=== PATIENT | female | born 1960 | race Caucasian/White ===

== ENCOUNTER 2018-06-19 14:48 | Inpatient (IN) | payer MEDICARE, MEDICAID ==
[~2018-06-19] VITALS: Ht 162.6 cm; Wt 106.1 kg
--- NOTE | ~2018-06-19 | CON ---
[address] [address] CONSULTATION Name: MURIEL GRIDER Room: [address] [place] .R.#: [id number] Admission: 06/19/18 Attend Phys: Harvinder Rooney MD Discharge: Date of : 64 Report #: [id number] THIS REPORT FOR: //name// CC: Harvinder [place] DATE OF SERVICE: 06/20/2018 HISTORY OF PRESENT ILLNESS: This is a 58-year-old female patient who presented with somewhat of an unusual history. She has been to [facility] multiple times. She said she was confused, and I reviewed the records in the computer and looks like when she came in, she was lethargic. She had altered mental status. She was given antibiotics. She says she took too much of it and stopped antibiotic, then she had the symptoms again and now, she feels back to her normal self. REVIEW OF SYSTEMS: Indicates that she had psychiatric problem. She has pain problem. She takes multiple psychotropic medications for that. She had multiple visits to the Emergency Room. 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 She had some problem with colon in the past. She had hypothyroidism in the past. I carried out the 14-point review of system and this was her relevant 14-point review of system. She said she is not having too much urinary symptoms now. She is not complaining of any new eye, ENT symptoms. She denies any respiratory difficulty. She says her appetite is good. She had multiple prior musculoskeletal symptoms. She does not know if she had any constitutional symptoms. She did not have any new dermatological or hematological symptoms. She has taken multiple psychotropic medications. PAST MEDICAL HISTORY: Positive for back pain. FAMILY HISTORY: Negative for any early age stroke. SOCIAL HISTORY: She does not smoke or drink alcohol. PHYSICAL EXAMINATION: Indicates she is alert, responsive, able to follow simple command. She is oriented. Her speech looks unremarkable. She believes her memory and fund of knowledge is baseline. Cranial nerve examination 2-12 looks unremarkable. Neuromuscular examination is unremarkable as checked for motor, sensory, reflex and tone. No cerebellar sign. She could not cooperate with the fundus. There is no meningeal sign. There is no thyroid mass. Has no edema, cyanosis or jaundice. She is moderately built. She does not have any dysmorphic features of eyes, ears and face. Cardiac examination is unremarkable. No respiratory difficulty or rhonchi. Blood pressure is 139/85, respirations are 13, pulse is 78, temperature is 97.9. LABORATORY DATA: White count is 4.1. Sodium is 145. She did [place] [address] CONSULTATION Name: MURIEL GRIDER Room: [address] IN [facility]#: [id number] Admission: 06/19/18 Attend Phys: Harvinder Rooney MD Discharge: Date of : 64 Report #: [id number] the head that did not show any definite abnormality. IMPRESSION: Most likely, the patient's symptoms were psychological. She is on multiple psychotropic medications. I will get an EEG and a carotid Doppler as first test and then think about doing a CT angiogram to complete the workup as necessary. I discussed all of it with the patient. The patient understands all those. She does not believe her symptoms are psychiatric and therefore, we will look at her workup once available and may do a CT angio of the head and neck to complete the workup depending upon this workup. By: 1431 1947Mariano Rivera MD /bianca
[2018-06-19 14:52] VITALS: BP 104/61
[2018-06-19] MEDS ORDERED: ZYPREXA 10 MG T10 MG PO (15:04)
[2018-06-19] MEDS ORDERED: HYDROXYZINE HCL25 M1 PO (15:04)
[2018-06-19] MEDS ORDERED: PAROXETINE HCL30 MG PO (15:04)
[2018-06-19] MEDS ORDERED: SYNTHROID25 MC1 PO (15:05)
[2018-06-19] MEDS ORDERED: OXYBUTYNIN 5 MG5 M2 PO (15:05)
[2018-06-19] MEDS ORDERED: LIPITOR 20 MG T20 M1 PO (15:05)
[2018-06-19] MEDS ORDERED: LYRICA 50 MG50 MG PO (15:06)
[2018-06-19] MEDS ORDERED: LIORESAL 10 MG10 MG PO (15:06)
[2018-06-19] MEDS ORDERED: TUMS PO (15:07)
[2018-06-19] MEDS ORDERED: VITAMIN D22000 UNIT PO (15:07)
[2018-06-19] MEDS ORDERED: DILAUDID 2 MG TA2 MG PO (15:07)
[2018-06-19] MEDS ORDERED: CREON DR 24,001 EACH PO (15:08)
[2018-06-19] MEDS ORDERED: IRON325 PO (15:08)
[2018-06-19 15:40] LABS: HEMATOCRIT 36.7 % (37.0-47.0); HEMOGLOBIN 12.4 gm/dL (12.0-15.0); MCHC 33.7 g/dL (28.0-37.0); MCV 92.2 fL (80.0-100.0); MPV 7.7 fl. (7.2-11.1); NUCLEATED RBCS 0 /100WBC; PLATELET COUNT* 200 thou/uL (150-400); RBC 3.99 mil/uL (4.20-5.00); RDW-CV 14.1 % (10.5-14.5)
[2018-06-19 15:49] LABS: APTT 28.3 Seconds (25.0-31.3); PROTIME 10.7 Seconds (9.20-11.50)
[2018-06-19 15:56] LABS: ANION GAP 6 mmol/L (7-16); BUN 15 mg/dL (7-18); CALCIUM 8.6 mg/dL (8.5-10.1); CHLORIDE 109 mmol/L (98-107); CO2 27 mmol/L (21-32); CREATININE 1.3 mg/dL (0.6-1.3); GLUCOSE 111 mg/dL (70-99); POTASSIUM 3.5 mmol/L (3.5-5.1); SODIUM 142 mmol/L (136-145)
[2018-06-19 16:01] LABS: ALKALINE PHOSPHATASE 104 U/L (46-116); NT-PRO BRAIN NAT PEPTIDE 197 pg/mL (<300); SGOT 15 U/L (15-37); SGPT 13 U/L (30-65); TOTAL BILIRUBIN 0.4 mg/dL (<0.1-1.0); TOTAL PROTEIN 6.8 g/dL (6.4-8.2); TROPONIN-I LEVEL <0.06 ng/mL (<0.06)
[2018-06-19 16:36] LABS: ABSOLUTE EOSINOPHILS 0.9 thou/uL (0.0-0.7); ABSOLUTE LYMPHOCYTES 1.8 thou/uL (0.8-5.3); ABSOLUTE MONOCYTES 0.2 thou/uL (0.0-1.2); ABSOLUTE NEUTROPHILS 3.1 thou/uL (1.6-8.1); PLATELET ESTIMATE ADEQUATE
[2018-06-19 17:18] LABS: URINE BILIRUBIN NEGATIVE (Negative); URINE BLOOD 1+ (Negative); URINE CLARITY CLEAR; URINE COLOR YELLOW; URINE GLUCOSE-RANDOM NEGATIVE (Negative); URINE KETONES NEGATIVE (Negative); URINE LEUKOCYTES-REFLEX NEGATIVE (Negative); URINE NITRITE-REFLEX NEGATIVE (Negative); URINE PROTEIN NEGATIVE (Negative); URINE SPECIFIC GRAVITY >= 1.030 (1.005-1.030); URINE UROBILINOGEN 0.2 E.U./dl (0.2-1.0)
[2018-06-19 17:25] LABS: AMP/METHAMP Negative (Negative); BARBITURATES Negative (Negative); BENZODIAZEPINES Negative (Negative); COCAINE Negative (Negative); METHADONE Negative (Negative); OPIATES POSITIVE (Negative); PCP Negative (Negative); THC Negative (Negative)
[2018-06-19 17:28] LABS: SQUAMOUS 0-3 Few /LPF (0-3)
[2018-06-19 17:29] LABS: URINE RBC 0-2 Rare /HPF (0-2); URINE WBC-REFLEX None Seen /HPF (0-5)
[2018-06-19 17:30] LABS: AMORPHOUS URATES Few /LPF (None Seen); BACTERIA-REFLEX 1-9 Few /HPF (None Seen); CRYSTALS None Seen /LPF (None Seen); FINE GRANULAR CASTS 0-3 Few /LPF (None Seen); HYALINE CASTS 4-10 Moderate /LPF (None Seen); MUCUS 4-6 Moderate strn/LPF (None Seen)
--- NOTE | 2018-06-19 17:41 | EKG ---
[place] [address] ELECTROCARDIOGRAM REPORT Name: MURIEL GRIDER Room: [place] [address] ADM IN [facility]#: [id number] Admission: 06/19/18 Attend Phys: Harvinder Rooney MD Discharge: Date of : 64 Report #: [id number] THIS REPORT FOR: //name// [facility] ED Test Date: 2018-06-19 Test Time: 14:55:53 Pat Name: MURIEL GRIDER Department: Room: [facility] Gender: F Neurology Tech: TEENA : 1960 Requested By: Miller Cavazos Order Number: [id number] MD: Keyur Mccord Measurements Intervals [place] Rate: 79 P: 17 WI: 183 QRS: -3 QRSD: 90 T: 32 QT: 370 QTc: 425 Interpretive Statements Sinus rhythm Probable left atrial enlargement Low voltage, precordial leads Borderline T abnormalities, anterior leads No previous ECG available for comparison Electronically Signed On 06-19-2018 17:40:45 REHABILITATION TECH by Keyur Mccord [email or web address] <ELECTRONICALLY SIGNED> By: Keyur Mccord MD, [facility] 06/19/18 1740 1455 1455 Keyur Mccord MD, [facility] /EPI
[2018-06-19 17:57] VITALS: BP 92/51
[2018-06-19 18:03] VITALS: BP 120/68
--- NOTE | 2018-06-19 18:56 | NUR ---
PATIENT ARRIVED TO ICU, PATIENT IS AXOX3 BUT STRUGGLES WITH THE DATE. NO PAIN AT THIS TIME, ON 2 LITERS NASAL CANULA. EDUCATED TO ROOM AND CALL LIGHT. MOTHER PRSENT. ASSESSMENT CHARTED. BED IN LOWEST POSITION, CALL [facility], TEMPERATURE LOGGING OPERATOR IN PLACE.
--- NOTE | 2018-06-19 20:17 | NUR ---
ELECTROLYTE PROTOCOL ORDERED PER ICU PROTOCOL.
[2018-06-19 23:00] VITALS: BP 105/63
[2018-06-20] VITALS (8 sets, daily range): BP systolic 99–142; BP diastolic 56–85
[2018-06-20 04:30] LABS: ABSOLUTE EOSINOPHILS 0.5 thou/uL (0.0-0.7); ABSOLUTE LYMPHOCYTES 1.4 thou/uL (0.8-5.3); ABSOLUTE MONOCYTES 0.3 thou/uL (0.0-1.2); ABSOLUTE NEUTROPHILS 1.8 thou/uL (1.6-8.1); EOSINOPHILS 11.4 %; HEMATOCRIT 36.4 % (37.0-47.0); HEMOGLOBIN 12.3 gm/dL (12.0-15.0); LYMPHOCYTES 34.7 %; MCH 31.3 pg (26.0-34.0); MCHC 33.7 g/dL (28.0-37.0); MCV 92.7 fL (80.0-100.0); MONOCYTES 8.3 %; MPV 8.2 fl. (7.2-11.1); NUCLEATED RBCS 0 /100WBC; PLATELET COUNT* 175 thou/uL (150-400); POLYS 44.6 %; RBC 3.92 mil/uL (4.20-5.00); RDW-CV 14.5 % (10.5-14.5); WBC 4.1 thou/uL (4.0-11.0)
[2018-06-20 04:36] LABS: CALCIUM 8.4 mg/dL (8.5-10.1); POTASSIUM 3.9 mmol/L (3.5-5.1)
--- NOTE | 2018-06-20 07:29 | NUR ---
LATE NOTE: ON 06/19/2018, RIGHT BASILIC VESSEL ACCESSED FOR 5 KYRGYZ DUAL LUMEN PICC. LINE PRE-TRIMMED TO 44 CM AND ADVANCED TO THE ZERO BETTYE WITH NO RESISTANCE MET. UPPER ARM CIRCUMFERENCE ABOVE INSERTION SITE =15". SHERLOCK MAGNET AND 3CG CONFIRMATION OF TIP TERMINATION AT THE CAVOATRIAL JUNCTION. NO LIDOCAINE USED FOR THE PROCEDURE PATIENT MOTHER HAS REPORTED THIS ALLERGY. STYLET REMOVED, INSERTION SITE DRESSED AND REPORT GIVEN TO DR MARLEY AND PATIENT NURSE.
--- NOTE | 2018-06-20 07:57 | NUR ---
RESTING QUIETLY WITH EYES CLOSED OFF AND ON DURING NOC, EASILY AROUSABLE TO STIMULI, C/O "TWITCHING" BILAT LOWER EXTREMITIES X1 DURING NOC, STATES HAS HX RESTLESS LEGS DURING NOC, TWITCHING NORMALLY RESOLVES BY TAKING hYRDROCODONE, EDUCATED NO HYDROCODONE ORDERED DURING ADMISSION R/T DX AMS, WARM BLANKET PROVIDED WITH EMOTIONAL SUPPORT, PT REPORTS TWITCHING RESOLVED AND WAS ABLE TO REST QUIELTY WITH EYES CLOSED, C/O NUMBNESS/TINGLING BILAT LOWER EXTREMITIES, MOVING BILAT LOWER EXTREMITES, STATES RIGHT LEG PAINFUL WITH MOVEMENT R/T "NEEDING SURGERY RIGHT KNEE", ALERT AND ORIENTED X3-4 WITH FORGETFULLNESS THIS AM. AWAKE, ALERT, AND CONVERSATIVE, REQUESTING PHONE NUMBER TO ORDER BREAKFAST, PT ABLE TO USE PHONE WITHOUT ASSIST PLACED ORDER FOR AM MEAL. 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
--- NOTE | 2018-06-20 10:25 | NUR ---
PATIENT AXOX4 BUT CHANGES STORIES EACH TIME A NEW PERSON IS IN THE ROOM. USES CALL LIGHT APPROPRIATELY AND FREQUENTLY. PATIENT NOW TELE STATUS. A TELEPSYCH CONSULT TO BE COMPLETED TODAY PER DR BAUTISTA. ALL QUESTIONS ANSWERED. SITTING UP EATING BREAKFAST AT THIS TIME. BED IN LOWEST POSIION, CALL LIGHT IN REACH, CARDIAC MONIOTR IN PLACE. WILL CONTINUE TO MONITOR.
--- NOTE | 2018-06-20 12:30 | NUR ---
ICU TRANSFER TO 205 TELEPHONE REPORT GIVEN PATIENT AND BELONGINGS TO VIA WC PATIENT SETTLED IN RECLINER AND ORIENTED TO AND CALL LIGHT DENIES PAIN
[2018-06-20] MEDS ORDERED: HYDROXYZINE HCL25 M1 PO (14:19)
[2018-06-20] MEDS ORDERED: OXYBUTYNIN 5 MG5 M2 PO (14:21)
[2018-06-20] MEDS ORDERED: B12INJ IM (14:22)
--- NOTE | 2018-06-20 17:24 | NUR ---
TELE PSYCH CONS COMPLETE NURSE AT BEDSIDE WITH PATIENT IN RM
--- NOTE | 2018-06-20 18:50 | NUR ---
ASSUMED CARE OF PT FROM EVON OWENS. AGREE WITH HER ASSESSMENT. EDUCATION GIVEN ON DEMAND HOURLY ROUNDING COMPLETE. PT HAS BEEN FRIENDLY AND TALKATIVE. SHE HAS BEEN UP TP BED SIDE COMMODE. BED IS IN LOW POSITION CALL LIGHT IS IN REACH.
[2018-06-21] VITALS: BP 123/70
[2018-06-21 04:00] VITALS: BP 135/68
[2018-06-21 04:57] LABS: ABSOLUTE BASOPHILS 0.1 thou/uL (0.0-0.2); ABSOLUTE EOSINOPHILS 0.3 thou/uL (0.0-0.7); ABSOLUTE LYMPHOCYTES 1.5 thou/uL (0.8-5.3); ABSOLUTE MONOCYTES 0.4 thou/uL (0.0-1.2); ABSOLUTE NEUTROPHILS 3.6 thou/uL (1.6-8.1); EOSINOPHILS 4.5 %; HEMOGLOBIN 13.1 gm/dL (12.0-15.0); LYMPHOCYTES 25.9 %; MCH 31.5 pg (26.0-34.0); MCHC 34.6 g/dL (28.0-37.0); MCV 90.9 fL (80.0-100.0); MONOCYTES 7.1 %; MPV 7.9 fl. (7.2-11.1); NUCLEATED RBCS 0 /100WBC; PLATELET COUNT* 192 thou/uL (150-400); POLYS 61.5 %; RBC 4.18 mil/uL (4.20-5.00); RDW-CV 14.2 % (10.5-14.5); WBC 5.8 thou/uL (4.0-11.0)
[2018-06-21 05:32] LABS: CALCIUM 8.7 mg/dL (8.5-10.1); POTASSIUM 3.5 mmol/L (3.5-5.1)
--- NOTE | 2018-06-21 07:29 | NUR ---
ASSUMED PT CARE @ 1930. PT GIVEN PAIN MEDICATION FREQUENTLY ORDERED. (PT REPORTS SHE IS TAKING LESS THAN 1/2 OF HER REGULAR HOME DOSE). TREMORS NOTEDLY INCREASED WHEN PT'S PRN PAIN MEDS ARE DUE" PT PULVERIZER OPERATOR LIGHT FREQUENTLY. MULTIPLE LOOSE DARK STOOLS- UP TO THE COMMODE FREQUENTLY. NOTIFIED PT SHE IS HAVING EEG TODAY. CALL LIGHT AT BEDSIDE. HOURLY ROUNDING FOR SAFETY.
[2018-06-21 08:05] VITALS: BP 153/66
[2018-06-21 10:35] VITALS: BP 153/66
--- NOTE | 2018-06-21 11:32 | NUR ---
ASSUMED CARE OF PT AROUND 0730 THIS AM. REFER TO ASSESSMENT. PT REFUSES EEG TODAY. PT GIVEN DC ORDERS. OK TO DC PER NEURO WELL. DC INSTRUCTIONS GIVEN TO PT AND PT VERBALIZES UNDERSTANDING. PT INSTRUCTED TO CHANGE PRN DILAUDID DOSE AND FOLLOW UP WITH PAIN CLINIC PHYSICIAN FOR MANAGEMENT OF PAIN MEDICATIONS. PT REPORTS HER MOTHER WILL PICK HER UP IN ABOUT AN HOUR PER PRIVATE VEHICLE. VOICES NO OTHER CONCERNS. CLWR. WCTM.
--- NOTE | 2018-06-22 09:31 | NUR ---
PT. DISCHARGED HOME PRIOR TO O.T. EVAL. PLEASE ORDER FURTHER O.T. SERVICES IF NEEDED.
== END 2018-06-21 12:00 | disposition home or self-care (01) | DRG 177 ==
LOC: M.ERS 14:48 → M.ICU 16:34 → M.TBA-ER 16:34 → M.2W 16:34 → M.ICU 18:03 → M.2W 06-20 12:25
PROVIDERS: Emergency Medicine Emergency Medical Services; ADMIT Internal Medicine
PROC: 02HV33Z Insertion of Infusion Device into Superior Vena Cava, Percutaneous Approach (ICD-10-PCS; principal; 2018-06-19)
DX: J69.0 Pneumonitis due to inhalation of food and vomit (principal); J96.01 Acute respiratory failure with hypoxia; R57.9 Shock, unspecified; F11.20 Opioid dependence, uncomplicated; G93.40 Encephalopathy, unspecified; N39.0 Urinary tract infection, site not specified; F41.9 Anxiety disorder, unspecified; F32.9 Major depressive disorder, single episode, unspecified; E03.9 Hypothyroidism, unspecified; M54.9 Dorsalgia, unspecified; M81.0 Age-related osteoporosis without current pathological fracture; G89.29 Other chronic pain; Z87.440 Personal history of urinary (tract) infections; Z88.8 Allergy status to other drugs, medicaments and biological substances; Z79.2 Long term (current) use of antibiotics; Z79.899 Other long term (current) drug therapy